=== PATIENT | female | born 1990 ===

== ENCOUNTER 2016-07-03 10:35 | Emergency (ER) | payer BC ==
[2016-07-03 11:08] VITALS: RESP 18; O2SAT 98
[2016-07-03] MEDS ORDERED: Sodium Chloride 0.9% 1,000 ML IV STA (11:10)
--- NOTE | 2016-07-03 11:13 | ED PDOC ---
Arrival/HPI - General Historian: Patient <LjBeronica A - Last Filed: 07/03/16 12:15> <Jesusita Baron A - Last Filed: 07/03/16 14:39> - General Chief Complaint: Dizziness/Lightheaded Time Seen by Provider: 07/03/16 10:53 - History of Present Illness Narrative History of Present Illness (Text): 07/03/16 11:11 25yo female with no PMhx present with complaint of positional dizziness since this morning with associated nausea. States she had similar symptom weeks ago, but it resolved without seeing a Doctor. Dizziness is worse with sudden movement of head. Denies focal weakness, recent URI, tinnitus, aphasia, visual change, headache, vomiting. (Beronica Calhoun A) Past Medical History - Provider Review Nursing Documentation Reviewed: Yes - Infectious Disease Hx of Infectious Diseases: None - Psychiatric Hx Psychophysiologic Disorder: No Hx Substance Use: No - Anesthesia Hx Anesthesia: No <Beronica Calhoun A - Last Filed: 07/03/16 12:15> Family/Social History - Physician Review Nursing Documentation Reviewed: Yes Family/Social History: Unknown Family HX Smoking Status: Unknown If Ever Smoked Hx Alcohol Use: No Hx Substance Use: No <Beronica Calhoun A - Last Filed: 07/03/16 12:15> Allergies/Home Meds <LjBeronica A - Last Filed: 07/03/16 12:15> <Jesusita Baron A - Last Filed: 07/03/16 14:39> Allergies/Adverse Reactions: Allergies No Known Allergies Allergy (Unverified 07/03/16 10:37) Review of Systems - Physician Review All systems were reviewed & negative as marked: Yes - Review of Systems Constitutional: Normal Eyes: Normal ENT: Normal Respiratory: Normal Cardiovascular: Normal Gastrointestinal: Normal Genitourinary Female: Normal Musculoskeletal: Normal Skin: Normal Neurological: Dizziness. absent: Headache, Focal Weakness, Speech Changes Endocrine: Normal Hemo/Lymphatic: Normal Psychiatric: Normal <Beronica Calhoun A - Last Filed: 07/03/16 12:15> Physical Exam Vital Signs Reviewed: Yes Temperature: Afebrile Blood Pressure: Normal Pulse: Regular Respiratory Rate: Normal Appearance: Positive for: Well-Appearing, Non-Toxic, Comfortable Pain Distress: None Mental Status: Positive for: Alert and Oriented X 3 - Systems Exam Head: Present: Atraumatic, Normocephalic Pupils: Present: PERRL Extroacular Muscles: Present: EOMI Conjunctiva: Present: Normal Mouth: Present: Moist Mucous Membranes Neck: Present: Normal Range of Motion Respiratory/Chest: Present: Clear to Auscultation, Good Air Exchange. No: Respiratory Distress, Accessory Muscle Use Cardiovascular: Present: Regular Rate and Rhythm, Normal S1, S2. No: Murmurs Abdomen: Present: Normal Bowel Sounds. No: Tenderness, Distention, Peritoneal Signs Back: Present: Normal Inspection Upper Extremity: Present: Normal Inspection. No: Cyanosis, Edema Lower Extremity: Present: Normal Inspection. No: Edema Neurological: Present: GCS=15, CN II-XII Intact, Speech Normal, Motor Func Grossly Intact, Normal Sensory Function, Normal Cerebellar Funct, Norm Deep Tendon Reflexes, Gait Normal, Memory Normal, Normal 2Pt Descrimination, Other ( No focal neurological deficit) Skin: Present: Warm, Dry, Normal Color. No: Rashes Psychiatric: Present: Alert, Oriented x 3, Normal Insight, Normal Concentration <Beronica Calhoun A - Last Filed: 07/03/16 12:15> Vital Signs Temp Pulse Resp BP Pulse Ox 07/03/16 12:10 98.0 F 65 18 114/72 98 07/03/16 11:06 97.9 F 69 18 116/78 98 07/03/16 10:37 97.9 F 69 17 116/78 100 Medical Decision Making <Beronica Calhoun A - Last Filed: 07/03/16 12:15> <Jesusita Baron A - Last Filed: 07/03/16 14:39> ED Course and Treatment: 07/03/16 12:16 PT presented secondary to the history. She was hemodynamically stable. No focal neurological deficit noted in ED. Not orthostatic. On revaluation s/p medication she states her symptoms resolved. Lab was unremarkable. Result was DW the pt. she was referred to ENT/Neuro for vertigo. Rx of Antivert was given. Advised TRT ER for any new or worsening symptoms. (LjHappiness A) - Lab Interpretations Lab Results: 07/03/16 11:20 07/03/16 11:20 Lab Results 07/03/16 11:25: Urine Color Yellow, Urine Appearance Clear, Urine pH 7.5, Ur Specific [place] 1.020, Urine Protein Negative, Urine Glucose (UA) Negative, Urine Ketones Negative, Urine Blood Trace-lysed H, Urine Nitrate Negative, Urine Bilirubin Negative, Urine Urobilinogen 0.2, Ur Leukocyte Esterase Negative , Urine RBC 0 - 2, Urine WBC Negative, Ur Epithelial Cells 4 - 5, Urine Bacteria Trace 07/03/16 11:20: WBC 5.5, RBC 5.20, Hgb 13.6, Hct 42.1, MCV 81.0, MCH 26.2, MCHC 32.3, RDW 13.4, Plt Count 268, MPV 10.9, Gran % 70.9 H, Lymph % (Auto) 24.7, [place] % (Auto) 3.8, Eos % (Auto) 0.2 L, Baso % (Auto) 0.4, Gran # 3.90, Lymph # 1.4, [place] # 0.2, Eos # 0.0, Baso # 0.02, PT 10.5, INR 0.97, APTT 26.5, Sodium 141, Potassium 4.2, Chloride 105, Carbon Dioxide 22, Anion Gap 18, BUN 11, Creatinine 0.6, Est GFR ( Amer) > 60, Est GFR (Non-Af Amer) > 60, Random Glucose 117 H, Calcium 9.6, Total Bilirubin 0.6, AST 30, ALT 26, Alkaline Phosphatase 104, Lactate Dehydrogenase 515, Total Creatine Kinase 91, Troponin I < 0.01, Total Protein 9.3 H, Albumin 4.5, Globulin 4.8, Albumin/Globulin Ratio 0.9 L - Medication Orders Current Medication Orders: Discontinued Medications Sodium Chloride (Sodium Chloride 0.9%) 1,000 mls @ 999 mls/hr IV .Q1H1M STA Stop: 07/03/16 12:10 Last Admin: 07/03/16 11:25 Dose: 999 MLS/HR eMAR Start Stop Document 07/03/16 11:25 SF (Rec: 07/03/16 11:25 [facility] [id number] Intravenous Solution Start Date 07/03/16 Start Time 11:25 End Date 07/03/16 End time 12:26 Total Infusion Time 61 Meclizine HCl (Antivert) 25 mg PO STAT STA Stop: 07/03/16 11:11 Last Admin: 07/03/16 11:24 Dose: 25 MG Ondansetron HCl (Zofran Inj) 4 mg IVP STAT STA Stop: 07/03/16 11:11 Last Admin: 07/03/16 11:24 Dose: 4 MG IVP Administration Document 07/03/16 11:24 SF (Rec: 07/03/16 11:24 [facility] [id number] Charges for Administration # of IVP Administrations 1 - PA / GENERATING [employer] MECH[employer]IC / Resident Statement / has reviewed & agrees with the documentation as recorded. <Jesusita Baron - Last Filed: 07/03/16 14:39> Disposition/Present on Arrival - Present on Arrival Any Indicators Present on Arrival: No History of DVT/PE: No History of Uncontrolled Diabetes: No Urinary Catheter: No History of Decub. Ulcer: No History Surgical Site Infection Following: None - Disposition Have Diagnosis and Disposition been Completed?: Yes Disposition Time: 12:20 Patient Plan: Discharge <Beronica Calhoun - Last Filed: 07/03/16 12:15> <Jesusita Baron - Last Filed: 07/03/16 14:39> - Disposition Diagnosis: Vertigo Disposition: HOME/ ROUTINE Discharge Instructions (ExitCare): Vertigo (ED) Additional Instructions: Follow up with ENT/Neurology Return to ED for any new or worsening symptoms Prescriptions: Meclizine [Meclizine*] 25 mg PO Q6 #12 tab Referrals: PCP,NO [Primary Care Provider] - Follow up with primary Mario Boothe DO [Staff Provider] - Follow up with primary Sergio Soriano MD [Staff Provider] - Follow up with primary Forms: WORK NOTE
[2016-07-03 11:36] LABS: PH,URINE 7.5 (4.7-8.0); URINE BILIRUBIN NEGATIVE (NEGATIVE); URINE BLOOD TRACE-LYSED (NEGATIVE); URINE GLUCOSE (UA) NEGATIVE (NEGATIVE); URINE KETONE NEGATIVE (NEGATIVE); URINE LEUKOCYTE ESTERASE NEGATIVE Leu/uL (NEGATIVE); URINE PROTEIN NEGATIVE mg/dL (<30 mg/dL); URINE UROBILINOGEN 0.2 E.U./dL (<1 E.U./dL)
[2016-07-03 11:43] LABS: URINE APPEARANCE CLEAR (CLEAR); URINE COLOR YELLOW (YELLOW)
[2016-07-03 11:44] LABS: ADD MANUAL DIFF? NO
[2016-07-03 11:48] LABS: BASO # 0.02 K/mm3 (0.0-2.0); BASO % 0.4 % (0.0-3.0); EOS % 0.2 % (1.5-5.0); GRAN % 70.9 % (50.0-68.0); HEMATOCRIT 42.1 % (36.0-48.0); LYMPH # 1.4 (1.2-3.4); LYMPH % 24.7 % (22.0-35.0); MEAN CORPUSCULAR HEMOGLOBIN 26.2 pg (25.0-35.0); MEAN CORPUSCULAR HGB CONC 32.3 g/dl (31.0-37.0); MEAN PLATELET VOLUME 10.9 fl (7.0-11.0); MONO # 0.2 (0.1-0.6); MONO % 3.8 % (1.0-6.0); PLATELET COUNT 268 10^3/uL (120.0-450.0); RED CELL DISTRIBUTION WIDTH 13.4 % (11.5-14.5); WHITE BLOOD COUNT 5.5 10^3/ul (4.5-11.0)
[2016-07-03 11:50] LABS: URINE RBC 0 - 2 /hpf (0-2); URINE WBC NEGATIVE /hpf (0-6)
[2016-07-03 11:51] LABS: URINE BACTERIA TRACE (NEG)
[2016-07-03 11:59] LABS: INR 0.97 (0.93-1.08); PARTIAL THROMBOPLASTIN TIME 26.5 Seconds (23.7-30.8)
[2016-07-03 12:03] LABS: ALB/GLOB RATIO 0.9 (1.1-1.8); ALKALINE PHOSPHATASE 104 U/L (38-133); ALT/SGPT 26 U/L (7-56); AST/SGOT 30 U/L (15-39); BILIRUBIN,TOTAL 0.6 mg/dL (0.2-1.3); BLOOD UREA NITROGEN 11 mg/dL (7-21); CALCIUM 9.6 mg/dL (8.4-10.5); CARBON DIOXIDE 22 mmol/L (21-33); CHLORIDE 105 mmol/L (98-107); GFR AFRICAN-AMERICAN > 60; GLUCOSE,RANDOM 117 mg/dL (70-110); POTASSIUM 4.2 mmol/L (3.6-5.0); SODIUM 141 mmol/L (132-148); TOTAL PROTEIN 9.3 g/dL (5.8-8.3)
[2016-07-03 12:18] LABS: TROPONIN I < 0.01 ng/mL
[2016-07-03 12:29] VITALS: BP 114/72; PULSE 65; TEMP 98
== END 2016-07-03 12:56 | disposition home or self-care (01) ==
LOC: ED 10:35
DX: R42 Dizziness and giddiness (principal)
CPT/HCPCS: 80053; 81001; 82550; 82948; 83615; 84484; 85025; 85610; 85730; 96361; 96374; 99285; J2405; J7040